=== PATIENT | male | born 1975 | race African-American/Black ===

== ENCOUNTER 2017-04-16 08:33 | Emergency (ER) | payer SELFPAY ==
[~2017-04-16] VITALS: Ht 180.3 cm; Wt 83.9 kg
--- NOTE | 2017-04-16 09:09 | PHYS DOC ---
Adult General Chief Complaint Chief Complaint: ABDOMINAL PAIN HPI HPI Patient is a 41 year old male presents to the ED complaining of abdominal pain 3 weeks. Patient states that he has a history of GERD. States he feels a burning in his stomach at times. Rates as 11/04. States he drinks alcohol 3-4 times per week and smokes cigarettes. States he has not been taking his GERD medication. Associated symptoms include nausea, burping and pain after meals. Denies chest pain, shortness of breath, dizziness, weakness, headache, fever, vomiting, diarrhea or constipation. Review of Systems Review of Systems Constitutional: Denies fever or chills [] Eyes: Denies change in visual acuity, redness, or eye pain [] HENT: Denies nasal congestion or sore throat [] Respiratory: Denies cough or shortness of breath [] Cardiovascular: No additional information not addressed in HPI [] GI: Complains of nausea and abdominal pain. Denies vomiting, bloody stools or diarrhea [] : Denies dysuria or hematuria [] Musculoskeletal: Denies back pain or joint pain [] Integument: Denies rash or skin lesions [] Neurologic: Denies headache, focal weakness or sensory changes [] Endocrine: Denies polyuria or polydipsia [] All other systems were reviewed and found to be within normal limits, except as documented in this note. Current Medications Current Medications Current Medications Medications (Trade) Dose Ordered Sig/Edilma Start Time Stop Time Status Last Admin Dose Admin Famotidine (Pepcid Vial) 20 mg 1X ONCE 04/16/17 09:15 04/16/17 09:16 DC 04/16/17 09:49 20 MG Ondansetron HCl (Zofran) 4 mg 1X ONCE 04/16/17 09:15 04/16/17 09:16 DC 04/16/17 09:46 4 MG Allergies Allergies Allergies Coded Allergies Type Severity Reaction Last Updated Verified No Known Drug Allergies 04/16/17 No Physical Exam Physical Exam Constitutional: Well developed, well nourished, no acute distress, non-toxic appearance. [] HENT: Normocephalic, atraumatic, bilateral external ears normal, oropharynx moist, no oral exudates, nose normal. [] Eyes: PERRLA, EOMI, conjunctiva normal, no discharge. [] Neck: Normal range of motion, no tenderness, supple, no stridor. [] Cardiovascular:Heart rate regular rhythm, no murmur [] Lungs & Thorax: Bilateral breath sounds clear to auscultation [] Abdomen: Bowel sounds normal, soft, no tenderness, no masses, no pulsatile masses. [] Skin: Warm, dry, no erythema, no rash. [] Back: No tenderness, no CVA tenderness. [] Extremities: No tenderness, no cyanosis, no clubbing, ROM intact, no edema. [] Neurologic: Alert and oriented X 3, normal motor function, normal sensory function, no focal deficits noted. [] Psychologic: Affect normal, judgement normal, mood normal. [] Current Patient Data Vital Signs Vital Signs Date Time Temp Pulse Resp B/P (MAP) Pulse Ox O2 Delivery O2 Flow Rate FiO2 04/16/17 11:08 61 16 147/101 (116) 100 Room Air 04/16/17 08:56 98.8 98.8 Lab Values Laboratory Tests Test 04/16/17 09:05 04/16/17 09:10 Urine Collection Type Unknown Urine Color Yellow Urine Clarity Clear Urine pH 6.0 Urine Specific Mcgregor >=1.030 Urine Protein 100 mg/dL (NEG-TRACE) Urine Glucose (UA) Negative mg/dL (NEG) Urine Ketones (Stick) Negative mg/dL (NEG) Urine Blood Negative (NEG) Urine Nitrite Negative (NEG) Urine Bilirubin Negative (NEG) Urine Urobilinogen Dipstick 0.2 mg/dL (0.2 mg/dL) Urine Leukocyte Esterase Negative (NEG) Urine RBC 0 /HPF (0-2) Urine WBC 1-4 /HPF (0-4) Urine Squamous Epithelial Cells Occ /LPF Urine Bacteria Few /HPF (0-FEW) Urine Mucus Marked /LPF White Blood Count 5.9 x10^3/uL (4.0-11.0) Red Blood Count 5.50 x10^6/uL (4.30-5.70) Hemoglobin 14.2 g/dL (13.0-17.5) Hematocrit 45.1 % (39.0-53.0) Mean Corpuscular Volume 82 fL (79-100) Mean Corpuscular Hemoglobin 26 pg (25-35) Mean Corpuscular Hemoglobin Concent 31 g/dL (31-37) Red Cell Distribution Width 15.2 % (11.5-14.5) H Platelet Count 138 x10^3/uL (140-400) L Sodium Level 143 mmol/L (136-145) Potassium Level 4.1 mmol/L (3.5-5.1) Chloride Level 107 mmol/L (98-107) Carbon Dioxide Level 28 mmol/L (21-32) Anion Gap 8 (6-14) Blood Urea Nitrogen 15 mg/dL (8-26) Creatinine 1.2 mg/dL (0.7-1.3) Estimated GFR (Cockcroft-Gault) 80.7 BUN/Creatinine Ratio 13 (6-20) Glucose Level 84 mg/dL (70-99) Calcium Level 9.2 mg/dL (8.5-10.1) Total Bilirubin 0.4 mg/dL (0.2-1.0) Aspartate Amino Transferase (AST) 18 U/L (15-37) Alanine Aminotransferase (ALT) 29 U/L (16-63) Alkaline Phosphatase 66 U/L (46-116) Total Protein 7.8 g/dL (6.4-8.2) Albumin 3.6 g/dL (3.4-5.0) Albumin/Globulin Ratio 0.9 (1.0-1.7) L Lipase 194 U/L (73-393) Laboratory Tests 04/16/17 09:10 Laboratory Tests 04/16/17 09:10 EKG EKG [] Radiology/Procedures Radiology/Procedures PROCEDURE: ABDOMEN COMPLETE Indication: Abdominal pain. The pancreas is unremarkable. The IVC is unremarkable. Aorta appears nonaneurysmal. The liver is normal in size. There is increased echogenicity throughout the liver consistent with hepatic steatosis. No mass is identified. The gallbladder is without stones or sludge. No wall thickening or pericholecystic fluid is identified. No biliary ductal dilatation is seen. The spleen is normal in size. The right and left kidneys are unremarkable. There is no ascites. Impression: 1. Hepatic steatosis. 2. No evidence of cholelithiasis or acute cholecystitis.[] Course & Med Decision Making Course & Med Decision Making Pertinent Labs and Imaging studies reviewed. (See chart for details) []Patient's pain relieved with medicine in ED. Discussed labs and imaging with patient. Patient states he is feeling much better. Symptoms relieved at this time. On, re-examination, abdomen is soft nontender nondistended. No peritoneal signs. Will discharge with Prilosec. Discussed follow-up with GI later this week. Provided contact information/education. Discussed reasons to return to the ED. Patient understands and agrees with plan. Dragon Disclaimer Dragon Disclaimer This electronic medical record was generated, in whole or in part, using a voice recognition dictation system. Departure Departure Impression: Primary Impression: Acid reflux Disposition: 01 HOME, SELF-CARE Condition: IMPROVED Referrals: TRISH DIOR MD Patient Instructions: Gastritis, Adult, Gastroesophageal Reflux Disease, Adult Scripts Omeprazole Magnesium (PRILOSEC OTC) 20 Mg Tablet.dr 1 TAB PO DAILY, #30 TAB 3 Refills Prov: ARNULFO AQUINO 04/16/17 ARNULFO AQUINO Apr 16, 2017 09:09
[2017-04-16] MEDS ORDERED: ONDANSETRON PF 4 MG/2 ML VIAL. IV ONE (09:15)
[2017-04-16] MEDS ORDERED: FAMOTIDINE 20 MG/2 ML VIAL IVP ONE (09:15)
[2017-04-16 09:30] LABS: BILIRUBIN,URINE NEGATIVE (NEG); GLUCOSE,URINE NEGATIVE (NEG); NITRITE,URINE NEGATIVE (NEG); PROTEIN,URINE 100 mg/dL (NEG-TRACE); UROBILINOGEN,URINE 0.2 mg/dL (0.2 mg/dL)
[2017-04-16 09:39] LABS: BACTERIA,URINE FEW /HPF (0-FEW); RBC,URINE 0 /HPF (0-2); SQUAMOUS EPITHELIAL CELL,UR OCC /LPF
[2017-04-16 10:10] LABS: HEMATOCRIT 45.1 % (39.0-53.0); HEMOGLOBIN 14.2 g/dL (13.0-17.5); RED BLOOD COUNT 5.5 x10^6/uL (4.30-5.70); RED CELL DISTRIBUTION WIDTH 15.2 % (11.5-14.5); WHITE BLOOD COUNT 5.9 x10^3/uL (4.0-11.0)
[2017-04-16 10:12] LABS: CALCIUM 9.2 mg/dL (8.5-10.1); CREATININE 1.2 mg/dL (0.7-1.3); GFR 80.7; POTASSIUM 4.1 mmol/L (3.5-5.1)
[2017-04-16 10:18] LABS: ALBUMIN 3.6 g/dL (3.4-5.0); ALBUMIN/GLOBULIN RATIO 0.9 (1.0-1.7); TOTAL BILIRUBIN 0.4 mg/dL (0.2-1.0); TOTAL PROTEIN 7.8 g/dL (6.4-8.2)
--- NOTE | 2017-04-16 10:49 | RAD ---
Indication: Abdominal pain. The pancreas is unremarkable. The IVC is unremarkable. Aorta appears nonaneurysmal. The liver is normal in size. There is increased echogenicity throughout the liver consistent with hepatic steatosis. No mass is identified. The gallbladder is without stones or sludge. No wall thickening or pericholecystic fluid is identified. No biliary ductal dilatation is seen. The spleen is normal in size. The right and left kidneys are unremarkable. There is no ascites. Impression: 1. Hepatic steatosis. 2. No evidence of cholelithiasis or acute cholecystitis.
[2017-04-16] MEDS ORDERED: OMEP20TA63 PO (10:57)
[2017-04-16 11:08] VITALS: BP 147/101
== END 2017-04-16 11:08 | disposition home or self-care (01) ==
LOC: ER 08:33
DX: K21.9 Gastro-esophageal reflux disease without esophagitis (principal); F17.210 Nicotine dependence, cigarettes, uncomplicated
CPT/HCPCS: 36415; 76700; 80053; 81001; 83690; 85027; 96374; 96375; 99285; J2405; S0028